=== PATIENT | male | born 1960 | race Caucasian/White ===

== ENCOUNTER 2016-12-03 14:54 | Emergency (ER) | payer OTHER ==
[~2016-12-03] VITALS: Ht 188 cm; Wt 135.2 kg
[2016-12-03] MEDS ORDERED: PRAVASTATIN SOD40 M2 PO (16:04)
[2016-12-03] MEDS ORDERED: AMLODIPINE-BEN1 EAC5 PO (16:05)
[2016-12-03] MEDS ORDERED: METOPROLOL SUCC50 M2 (16:05)
[2016-12-03] MEDS ORDERED: TRAZODONE HCL100 M1 (16:06)
[2016-12-03] MEDS ORDERED: CLONIDINE HCL0.1 MG (16:06)
[2016-12-03] MEDS ORDERED: MULTI-DAY VITA1 EACH PO (16:07)
[2016-12-03] MEDS ORDERED: NAPROSYN500 M1 PO (16:19)
[2016-12-03] MEDS ORDERED: PERCOCET 5-3251 EACH PO (16:19)
--- NOTE | 2016-12-03 16:19 | ED UPPER/LOWER EXTREMITY COMPL ---
History of Present Illness General Chief Complaint: Shoulder Injury Stated Complaint: SHOULDER PAIN Source: patient Exam Limitations: no limitations Vital Signs & Intake/Output Vital Signs & Intake/Output Vital Signs Date Time Temp Pulse Resp B/P Pulse O2 O2 Flow FiO2 Ox Delivery Rate 12/03 1515 99.0 110 20 150/99 97 Room Air Allergies Coded Allergies: No Known Allergies (12/03/16) Triage Note: TRIAGE: PT TO ER C/C L SHOULDER PAIN X ABOUT A MONTH, NO KNOWN INJURY. HAD OUTPATIENT XRAYS FOR SAME DONE "WITH IN A MONTH", ORDERED BY DR CHEATHAM. TAKING PERCOCET FOR PAIN, RAN OUT OF SAME THIS MORNING. WAS SUPPOSED TO SEE DR CHEATHAM THIS MORNING BUT "NO ONE WAS THERE". STATES THEY ARE WORKING ON REFERRING HIM TO PAIN MANAGEMENT. Triage Nurses Notes Reviewed? yes HPI: THIS PATIENT is a 56-year-old male with a past medical history including extensive arthritis who presented to the emergency department today sent in at the request of his primary care physician for medication refill. The patient reported that he has been seeing his primary care physician for years, but he is now transitioning all of this patient is on opiate medications to pain management. He reported that he will not be in pain management for another couple of weeks. He has had left-sided shoulder pain times, "many weeks." The patient reported the pain gets up to a 7 out of 10 and is worse with movement. He reported that it does feel similar to when he had a prior rotator cuff tear. The pain is constant without pain medication. Sometimes radiates to his elbow. He reported that he had x-rays done here previously and that it showed arthritis. The patient has an appointment scheduled with an orthopedist. The patient reported that he was taking Percocet prescribed to him by his primary care physician, but because he cannot prescribed opiates anymore, he was told to come to the emergency department. The patient denied any chest pain, palpitations, numbness or tingling in his extremities, jaw pain, headaches, visual changes, difficult to breathing, or any other associated symptoms. (ALINE GONGORA,DEBBIE) Reconcile Medications Amlodipine Besylate/Benazepril (Amlodipine-Benazepril 10-40 MG) 10 MG-40 MG CAPSULE 1 CAP PO DAILY BP (Reported) Clonidine HCl (Unknown Strength) TABLET (Unknown Dose) UNKNOWN (Reported) Metoprolol Succinate (Unknown Strength) TAB.ER.24H (Unknown Dose) UNKNOWN ( Reported) Multivitamin (Multi-Day Vitamins) 1 EACH TABLET 1 TAB PO DAILY SUPPLEMENT ( Reported) Naproxen (Naprosyn) 500 MG TABLET 1 TAB PO BID PRN PAIN AND INFLAMMATION Oxycodone HCl/Acetaminophen (Percocet 5-325 MG Tablet) 5 MG-325 MG TABLET 1 TAB PO BID PRN PAIN Pravastatin Sodium 40 MG TABLET 1 TAB PO QPM CHOLESTEROL (Reported) Trazodone HCl (Unknown Strength) TABLET (Unknown Dose) UNKNOWN (Reported) (ALEA QUINONEZ,KONG) Past History Travel History Traveled to [place] past 21 day No Medical History Any Pertinent Medical History? 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 No (DEBBIE MIRELES PA-C) Review of Systems Review of Systems Constitutional: Reports: no symptoms. EENTM: Reports: no symptoms. Respiratory: Reports: no symptoms. Cardiovascular: Reports: no symptoms. Gastrointestinal/Abdominal: Reports: no symptoms. Musculoskeletal: Reports: see HPI. Skin: Reports: no symptoms. Neurological/Psychological: Reports: no symptoms. All Other Systems: Reviewed and Negative (DEBBIE MIRELES PA-C) Physical Exam Physical Exam General Appearance: well developed/nourished, no apparent distress, alert, awake Comments: Well-developed well-nourished person in no acute distress HEENT: Head normocephalic, moist mucous membranes Neck: Supple, no lymphadenopathy Back: Normal gait Respiratory: No respiratory distress. Speaking in full sentences Cardiovascular: Regular rate and rhythm with no murmurs rubs, or gallops Left upper extremity: No effusions overlying erythema or ecchymosis to the joint spaces. No bony or muscular deformities noted. Full range of motion of the shoulder, elbow, and wrist. Tenderness to palpation over the acromioclavicular joint space. Capillary refill less than 2 seconds. Radial brachial pulses 2+ and strong. Rivet Thrower strength 5 out of 5 Neuro: Alert and oriented x3 Psych: Mood affect normal, normal memory normal judgment. Skin: Warm and dry, no rash on exposed skin (DEBBIE MIRELES PA-C) Progress Differential Diagnosis: arterial insufficiency, cellulitis, compartment syndrome , contusion, dislocation, DVT, fracture, gout, septic arthritis, sprain, tendon injury Plan of Care: This patient is 48-year-old male who presented to the emergency department today requesting medication for his shoulder pain that is currently being worked up as an outpatient. Unremarkable physical examination. Be musculoskeletal in nature based on this patient's complaints. This patient that I cannot prescribe him a long course of a narcotic. He understands this and will follow-up with his orthopedist and pain management. (DEBBIE MIRELES PA-C) Departure Departure Disposition: HOME OR SELF CARE Condition: Stable Clinical Impression Primary Impression: Shoulder pain Qualifiers: Laterality: left Chronicity: unspecified Qualified Code: M25.512 - Pain in left shoulder Referrals: SIMBA QUINONEZ,ISSA Yang (PCP/Family) Additional Instructions: Take medication for pain as prescribed. Please be sure to attend your previously scheduled appointment with the orthopedist as discussed. Use the sling provided to here in the emergency Department for extra support of your elbow. Follow up with her primary care physician. Return for any worsening symptoms or concerns. Departure Forms: Customer Survey General Discharge Information Prescriptions: Current Visit Scripts Oxycodone HCl/Acetaminophen (Percocet 5-325 MG Tablet) 1 TAB PO BID PRN PAIN #6 TAB Naproxen (Naprosyn) 1 TAB PO BID PRN PAIN AND INFLAMMATION #30 TAB (DEBBIE MIRELES PA-C) PA/MOLD PARTER Co-Sign Statement Statement: ED Attending supervision documentation- [] I saw and evaluated the patient. I have also reviewed all the pertinent lab results and diagnostic results. I agree with the findings and the plan of care as documented in the PA's/MOLD PARTER's documentation. [X] I have reviewed the ED Record and agree with the PA's/MOLD PARTER's documentation. [] Additions or exceptions (if any) to the PAs/MOLD PARTER's note and plan are summarized below: [] (ALEA QUINONEZ,KONG)
[2016-12-03 16:36] VITALS: BP 144/90
== END 2016-12-03 16:37 ==
LOC: ERH 14:54
DX: M25.512 Pain in left shoulder (principal)